=== PATIENT | female | born 1975 | race Caucasian/White ===

== ENCOUNTER 2022-05-02 09:33 | Emergency (ER) | payer SELFPAY ==
[~2022-05-02] VITALS: Ht 162.6 cm; Wt 73.0 kg
[2022-05-02] MEDS ORDERED: KETOROLAC 60MG/2ML VIAL IM ONE (10:30)
[2022-05-02] MEDS ORDERED: CYCLOBENZAPRINE 10MG TABLET PO ONE (10:30)
[2022-05-02] MEDS ORDERED: CYCL5TAB MT (11:41)
[2022-05-02] MEDS ORDERED: NAPR500T7 PO (11:41)
[2022-05-02 12:14] VITALS: BP 119/77
== END 2022-05-02 12:15 | disposition home or self-care (01) ==
LOC: ER 10:00
DX: S39.012A Strain of muscle, fascia and tendon of lower back, initial encounter (principal); S16.1XXA Strain of muscle, fascia and tendon at neck level, initial encounter; I10 Essential (primary) hypertension; V03.90XA Pedestrian on foot injured in collision with car, pick-up truck or van, unspecified whether traffic or nontraffic accident, initial encounter; Y93.01 Activity, walking, marching and hiking; Y92.488 Other paved roadways as the place of occurrence of the external cause
CPT/HCPCS: 96372; 99283; J1885